=== PATIENT | male | born 1955 | race Caucasian/White ===

== ENCOUNTER 2022-08-10 06:01 | Inpatient (IN) | payer MEDICARE ==
[~2022-08-10] VITALS: Ht 175.3 cm; Wt 81.6 kg
[2022-08-10] VITALS (7 sets, daily range): BP systolic 142–160; BP diastolic 80–96; PULSE 67–77; RESP 18; TEMP 97.2–98.4; O2SAT 95–99
[~2022-08-10 06:01] MED LIST: AVODART0.5 MG PO; FLOMAX0.4 MG PO
[2022-08-10] MEDS ORDERED: PIPERACILLIN/TAZOBACTAM 3.375 GM VIAL ONE (08:02)
[2022-08-10] MEDS ORDERED: GENTAMICIN 80MG/NS 100 ML 200 ML IV ONE (08:02)
[2022-08-10] MEDS ORDERED: LACTATED RINGER'S 1,000 ML ONE (08:02)
[2022-08-10 08:18] LABS: BASOPHILS # (AUTO) 0.1 (0.0-0.1); BASOPHILS % 0.6 % (0.0-1.0); EOSINOPHILS # (AUTO) 0.1 (0.0-0.4); EOSINOPHILS % 0.9 % (0.0-6.0); HEMATOCRIT 48.1 % (38.2-49.6); HEMOGLOBIN 15.9 g/dL (14.0-18.0); LYMPHOCYTES # (AUTO) 1.9 (1.0-3.2); LYMPHOCYTES % 17.6 % (18.0-39.1); MEAN CORPUSCULAR HEMOGLOBIN 28.2 pg (28-32); MEAN CORPUSCULAR HGB CONC 33.1 g/dL (31-35); MEAN CORPUSCULAR VOLUME 85.3 fL (81-99); MONOCYTES # (AUTO) 0.9 (0.2-0.8); NEUTROPHILS # (AUTO) 7.6 (2.1-6.9); NEUTROPHILS % 72.3 % (38.7-80.0); PLATELET COUNT 372 x10e3/uL (140-360); RED BLOOD COUNT 5.64 x10e6/uL (4.3-5.7); RED CELL DISTRIBUTION WIDTH 13.7 % (11.7-14.4)
[2022-08-10] MEDS ORDERED: SODIUM CHLORIDE 0.45% 0 ML ONE (08:20)
[2022-08-10] MEDS ORDERED: SODIUM CHLORIDE 0.9% 1000ML 1,000 ML ONE (08:22)
[2022-08-10 08:47] LABS: ANION GAP 13.4 mmol/L (8-16); CALCIUM 9.4 mg/dL (8.4-10.2); CREATININE, SERUM 0.97 mg/dL (0.72-1.25); POTASSIUM 3.4 mmol/L (3.5-5.1)
[2022-08-10] MEDS ORDERED: IOPAMIDOL 370 MG/ML 100 ML INFUS..BTL INJ ONE (09:04)
[2022-08-10] MEDS: FENTANYL CITRATE/PF 100MCG/2 ML INJ ONE ×2 (11:32→11:38)
[2022-08-10] MEDS ORDERED: DIPHENHYDRAMINE HCL 25 MG CAP PO PRN ×2 (11:45→15:30)
[2022-08-10] MEDS ORDERED: PHENAZOPYRIDINE HCL 100 MG TAB PO PRN (11:45)
[2022-08-10] MEDS ORDERED: ONDANSETRON HCL INJ 2MG/ML 2ML 2 MG/ML VIAL IV PRN ×2 (11:45→15:30)
[2022-08-10 12:26] LABS: BASOPHILS % 0.2 % (0.0-1.0); HEMATOCRIT 42.7 % (38.2-49.6); HEMOGLOBIN 14.1 g/dL (14.0-18.0); LYMPHOCYTES # (AUTO) 0.9 (1.0-3.2); LYMPHOCYTES % 3.8 % (18.0-39.1); MEAN CORPUSCULAR HEMOGLOBIN 28.4 pg (28-32); MEAN CORPUSCULAR VOLUME 86.1 fL (81-99); MONOCYTES # (AUTO) 0.5 (0.2-0.8); MONOCYTES % 2.1 % (4.4-11.3); NEUTROPHILS # (AUTO) 21.8 (2.1-6.9); NEUTROPHILS % 93.5 % (38.7-80.0); PLATELET COUNT 309 x10e3/uL (140-360); RED BLOOD COUNT 4.96 x10e6/uL (4.3-5.7); RED CELL DISTRIBUTION WIDTH 13.6 % (11.7-14.4)
[2022-08-10] MEDS ORDERED: HYDROMORPHONE 1MG/1ML INJ ONE (12:29)
[2022-08-10 12:46] LABS: CALCIUM 7.3 mg/dL (8.4-10.2); CREATININE, SERUM 0.84 mg/dL (0.72-1.25)
[2022-08-10] MEDS ORDERED: FENTANYL CITRATE/PF 100MCG/2 ML INJ ONE (13:48)
[2022-08-10] MEDS ORDERED: MIDAZOLAM HCL 2 MG/2 ML VIAL ONE (13:48)
[2022-08-10] MEDS: SODIUM CHLORIDE 0.9% 1000ML 1,000 ML IV SCH (14:33)
[2022-08-10] MEDS ORDERED: POVIDONE IODINE 0.05% 0.05 % ML PO ONE (15:11)
[2022-08-10] MEDS ORDERED: LABETALOL HCL 5 MG/ML 20ML VIAL ONE (15:11)
[2022-08-10] MEDS ORDERED: DEXAMETHASONE SOD PHOS INJ 4 MG/ML SDV ONE (15:11)
[2022-08-10] MEDS ORDERED: PROPOFOL IV EMULSION 10 MG/ML 20 ML VIAL ONE (15:11)
[2022-08-10] MEDS ORDERED: SEVOFLURANE INHAL SOLN 250 ML PEN BTL ONE (15:11)
[2022-08-10] MEDS ORDERED: ONDANSETRON HCL INJ 2MG/ML 2ML 2 MG/ML VIAL ONE (15:11)
[2022-08-10] MEDS ORDERED: LIDOCAINE HCL 2% LOCAL INJ 5 ML SDV VIAL INJ ONE (15:11)
[2022-08-10] MEDS ORDERED: DEXTROSE 50% SYRINGE 50 ML IV PRN (15:30)
[2022-08-10] MEDS ORDERED: BENZONATATE 100 MG CAP PO PRN (15:30)
[2022-08-10] MEDS ORDERED: ALBUTEROL/IPRATROPIUM 3 ML NEB NEB PRN (15:30)
[2022-08-10] MEDS ORDERED: HYDRALAZINE HCL 20 MG/ML VIAL IV PRN (15:30)
[2022-08-10] MEDS ORDERED: ACETAMINOPHEN 325 MG TAB PO PRN (15:30)
[2022-08-10] MEDS ORDERED: LIDOCAINE 4% PATCH TP PRN (15:30)
[2022-08-10] MEDS ORDERED: SIMETHICONE 80 MG CHEW PO PRN (15:30)
[2022-08-10] MEDS ORDERED: DOCUSATE SODIUM 100 MG CAP PO PRN (15:30)
[2022-08-10] MEDS ORDERED: POTASSIUM CHLORIDE 20 MEQ TAB CR PO PRN (15:30)
[2022-08-10] MEDS ORDERED: ACETAMINOPHEN 1000 MG/100 ML IV PRN (16:00)
[2022-08-10] MEDS: DOCUSATE SODIUM 100 MG CAP PO SCH (16:29)
[2022-08-10] MEDS: MELATONIN 5 MG TABLET PO PRN (21:43)
[2022-08-10] MEDS: ACETAMINOPHEN/CODEINE 300MG - 30MG TAB PO PRN (21:44)
[2022-08-11] VITALS (9 sets, daily range): BP systolic 130–178; BP diastolic 72–108; PULSE 67–83; RESP 16–19; TEMP 98.3–99; O2SAT 94–100
[2022-08-11 04:35] LABS: BASOPHILS % 0.1 % (0.0-1.0); EOSINOPHILS # (AUTO) 0.1 (0.0-0.4); EOSINOPHILS % 0.4 % (0.0-6.0); HEMATOCRIT 39.6 % (38.2-49.6); HEMOGLOBIN 13.3 g/dL (14.0-18.0); LYMPHOCYTES # (AUTO) 1.6 (1.0-3.2); LYMPHOCYTES % 11.2 % (18.0-39.1); MEAN CORPUSCULAR HEMOGLOBIN 28.4 pg (28-32); MEAN CORPUSCULAR HGB CONC 33.6 g/dL (31-35); MEAN CORPUSCULAR VOLUME 84.4 fL (81-99); MONOCYTES # (AUTO) 1.3 (0.2-0.8); MONOCYTES % 9.3 % (4.4-11.3); NEUTROPHILS # (AUTO) 10.9 (2.1-6.9); NEUTROPHILS % 78.5 % (38.7-80.0); PLATELET COUNT 318 x10e3/uL (140-360); RED BLOOD COUNT 4.69 x10e6/uL (4.3-5.7); RED CELL DISTRIBUTION WIDTH 14.1 % (11.7-14.4)
[2022-08-11 04:54] LABS: ANION GAP 12.1 mmol/L (8-16); CALCIUM 7.8 mg/dL (8.4-10.2); CREATININE, SERUM 0.8 mg/dL (0.72-1.25); POTASSIUM 4.1 mmol/L (3.5-5.1)
[2022-08-11 05:06] LABS: MAGNESIUM 1.7 MG/DL (1.3-2.1); PHOSPHORUS 3.3 MG/DL (2.3-4.7)
[2022-08-11 05:27] LABS: THYROID STIMULATING HORMONE 0.339 uIU/mL (0.350-4.940)
[2022-08-11] MEDS: SODIUM CHLORIDE 0.9% 1000ML 1,000 ML IV SCH ×2 (05:56→14:16)
[2022-08-11] MEDS: DOCUSATE SODIUM 100 MG CAP PO SCH ×2 (09:20→16:27)
[2022-08-11] MEDS: PANTOPRAZOLE SOD 40 MG TABEC PO SCH (09:20)
[2022-08-11] MEDS: MELATONIN 5 MG TABLET PO PRN (22:53)
[2022-08-11] MEDS: LOSARTAN POTASSIUM 100 MG TAB PO SCH (22:57)
[2022-08-12] VITALS (10 sets, daily range): BP systolic 126–175; BP diastolic 75–94; PULSE 70–77; RESP 15–18; TEMP 96.8–98.8; O2SAT 98–100
[2022-08-12 07:14] LABS: BASOPHILS # (AUTO) 0.1 (0.0-0.1); BASOPHILS % 0.5 % (0.0-1.0); EOSINOPHILS # (AUTO) 0.3 (0.0-0.4); EOSINOPHILS % 2.6 % (0.0-6.0); HEMATOCRIT 41.1 % (38.2-49.6); HEMOGLOBIN 13.9 g/dL (14.0-18.0); MEAN CORPUSCULAR HEMOGLOBIN 28.4 pg (28-32); MEAN CORPUSCULAR HGB CONC 33.8 g/dL (31-35); MEAN CORPUSCULAR VOLUME 83.9 fL (81-99); MONOCYTES # (AUTO) 1.4 (0.2-0.8); MONOCYTES % 10.4 % (4.4-11.3); NEUTROPHILS # (AUTO) 9.4 (2.1-6.9); NEUTROPHILS % 70.9 % (38.7-80.0); PLATELET COUNT 336 x10e3/uL (140-360); RED CELL DISTRIBUTION WIDTH 14.1 % (11.7-14.4)
[2022-08-12 07:27] LABS: ANION GAP 11.8 mmol/L (8-16); CALCIUM 8.9 mg/dL (8.4-10.2); CREATININE, SERUM 0.85 mg/dL (0.72-1.25); POTASSIUM 3.8 mmol/L (3.5-5.1)
[2022-08-12] MEDS: PANTOPRAZOLE SOD 40 MG TABEC PO SCH (08:03)
[2022-08-12] MEDS: LOSARTAN POTASSIUM 100 MG TAB PO SCH (08:04)
[2022-08-12] MEDS: DOCUSATE SODIUM 100 MG CAP PO SCH ×2 (08:14→17:00)
[2022-08-12] MEDS: ACETAMINOPHEN/CODEINE 300MG - 30MG TAB PO PRN (20:46)
[2022-08-12] MEDS: MELATONIN 5 MG TABLET PO PRN (20:51)
[2022-08-13] VITALS (10 sets, daily range): BP systolic 110–138; BP diastolic 65–84; PULSE 71–82; RESP 16–20; TEMP 97.3–98.7; O2SAT 96–100
[2022-08-13 06:05] LABS: BASOPHILS # (AUTO) 0.1 (0.0-0.1); BASOPHILS % 0.5 % (0.0-1.0); EOSINOPHILS # (AUTO) 0.3 (0.0-0.4); EOSINOPHILS % 2.1 % (0.0-6.0); HEMATOCRIT 41.7 % (38.2-49.6); HEMOGLOBIN 14.3 g/dL (14.0-18.0); LYMPHOCYTES # (AUTO) 2.1 (1.0-3.2); LYMPHOCYTES % 13.7 % (18.0-39.1); MEAN CORPUSCULAR HEMOGLOBIN 28.7 pg (28-32); MEAN CORPUSCULAR HGB CONC 34.3 g/dL (31-35); MEAN CORPUSCULAR VOLUME 83.6 fL (81-99); MONOCYTES # (AUTO) 1.6 (0.2-0.8); MONOCYTES % 10.6 % (4.4-11.3); NEUTROPHILS # (AUTO) 10.8 (2.1-6.9); NEUTROPHILS % 72.2 % (38.7-80.0); PLATELET COUNT 331 x10e3/uL (140-360); RED BLOOD COUNT 4.99 x10e6/uL (4.3-5.7); RED CELL DISTRIBUTION WIDTH 14.1 % (11.7-14.4)
[2022-08-13 06:25] LABS: ANION GAP 12.8 mmol/L (8-16); CALCIUM 9.1 mg/dL (8.4-10.2); CREATININE, SERUM 0.85 mg/dL (0.72-1.25); POTASSIUM 3.8 mmol/L (3.5-5.1)
[2022-08-13] MEDS ORDERED: ONDANSETRON HCL 4 MG ORAL DISINTEGRATING TAB PO PRN (08:45)
[2022-08-13] MEDS: DOCUSATE SODIUM 100 MG CAP PO SCH ×2 (09:00→16:06)
[2022-08-13] MEDS: LOSARTAN POTASSIUM 100 MG TAB PO SCH (09:00)
[2022-08-13] MEDS: PANTOPRAZOLE SOD 40 MG TABEC PO SCH (09:12)
[2022-08-14 05:53] LABS: BASOPHILS # (AUTO) 0.1 (0.0-0.1); BASOPHILS % 0.5 % (0.0-1.0); EOSINOPHILS # (AUTO) 0.2 (0.0-0.4); EOSINOPHILS % 1.7 % (0.0-6.0); HEMATOCRIT 39.4 % (38.2-49.6); HEMOGLOBIN 13.5 g/dL (14.0-18.0); LYMPHOCYTES # (AUTO) 1.9 (1.0-3.2); MEAN CORPUSCULAR HEMOGLOBIN 28.5 pg (28-32); MEAN CORPUSCULAR HGB CONC 34.3 g/dL (31-35); MEAN CORPUSCULAR VOLUME 83.1 fL (81-99); MONOCYTES # (AUTO) 1.6 (0.2-0.8); MONOCYTES % 11.6 % (4.4-11.3); NEUTROPHILS # (AUTO) 9.8 (2.1-6.9); NEUTROPHILS % 71.1 % (38.7-80.0); PLATELET COUNT 348 x10e3/uL (140-360); RED BLOOD COUNT 4.74 x10e6/uL (4.3-5.7); RED CELL DISTRIBUTION WIDTH 13.8 % (11.7-14.4)
[2022-08-14 06:14] LABS: ANION GAP 11.8 mmol/L (8-16); CALCIUM 9.2 mg/dL (8.4-10.2); CREATININE, SERUM 0.82 mg/dL (0.72-1.25); POTASSIUM 3.8 mmol/L (3.5-5.1)
[2022-08-14 08:00] VITALS: BP 128/78; PULSE 77; RESP 19; TEMP 97.7; O2SAT 99
[2022-08-14] MEDS: PANTOPRAZOLE SOD 40 MG TABEC PO SCH (08:22)
[2022-08-14] MEDS: DOCUSATE SODIUM 100 MG CAP PO SCH ×2 (08:24→17:00)
[2022-08-14] MEDS: LOSARTAN POTASSIUM 100 MG TAB PO SCH (09:00)
[2022-08-14 09:10] VITALS: PULSE 74; RESP 18; O2SAT 94
[2022-08-14 09:25] VITALS: BP 128/78; PULSE 77; RESP 19; TEMP 97.7; O2SAT 99
[2022-08-14] MEDS ORDERED: LOSARTAN POTAS100 MG PO (10:52)
[2022-08-14 12:00] VITALS: BP 136/86; PULSE 65; RESP 21; TEMP 98.4; O2SAT 100
[2022-08-14 16:17] VITALS: BP 124/81; PULSE 73; RESP 20; TEMP 99.2; O2SAT 100
[2022-08-14] MEDS ORDERED: LEVOFLOXACIN 500 MG TAB PO ONE (16:30)
== END 2022-08-14 18:00 | disposition home or self-care (01) | DRG 713 ==
LOC: OR 06:01 → PACU V 11:39 → MED/SURG 13:46
PROVIDERS: ADMIT Internal Medicine; ATTEND Internal Medicine
PROC: 0VB03ZX Excision of Prostate, Percutaneous Approach, Diagnostic (ICD-10-PCS; 2022-08-10)
PROC: BT1B1ZZ Fluoroscopy of Bladder and Urethra using Low Osmolar Contrast (ICD-10-PCS; 2022-08-10)
PROC: 0VT08ZZ Resection of Prostate, Via Natural or Artificial Opening Endoscopic (ICD-10-PCS; principal; 2022-08-10 09:20)
DX: N40.1 Benign prostatic hyperplasia with lower urinary tract symptoms (principal); N13.8 Other obstructive and reflux uropathy; R97.20 Elevated prostate specific antigen [PSA]; I10 Essential (primary) hypertension; R31.9 Hematuria, unspecified; R33.8 Other retention of urine; N32.3 Diverticulum of bladder; R39.14 Feeling of incomplete bladder emptying; Z83.3 Family history of diabetes mellitus; Z82.49 Family history of ischemic heart disease and other diseases of the circulatory system
CPT/HCPCS: 36415; 51700; 71046; 74420; 76872; 76998; 80048; 83735; 84100; 84443; 85025; 88305; 93005; 94799; 96361; C1758; J1100; J1170; J1580; J2001; J2250; J2405; J2543; J7030; Q9967